=== PATIENT | male | born 1990 | race Caucasian/White ===

== ENCOUNTER 2020-08-03 14:06 | Emergency (ER) | payer MEDICAID ==
--- NOTE | 2020-08-03 15:11 | EDM.PDOCBH ---
ED HPI GENERAL MEDICAL PROBLEM - General Chief Complaint: Behavioral/Psych Stated Complaint: MENTAL EVAL Time Seen by Provider: 08/03/20 14:13 Source of Information: Reports: Patient History Limitations: Reports: No Limitations - History of Present Illness INITIAL COMMENTS - FREE TEXT/NARRATIVE: The patient presents with suicidal ideation. He has a history of depression. He is not on any medications. He is trying to get gender reassignment and he wants to be called Lyssa. He just recently stopped taking his hormones for this. He is currently homeless and feel he is a burden to his family and is frustrated with the process of getting his name changed and so forth. He has not been sleeping very well. He has not been eating or drinking well. He has no other symptoms such as fever, chills, cough, congestion, runny nose, chest pain, shortness of breath, abdominal pain, nausea or vomiting. A few days ago he Onset: Gradual Duration: Week(s): Severity: Moderate Improves with: Reports: None Worsens with: Reports: None Associated Symptoms: Reports: No Other Symptoms Head Pain Score (Numeric/FACES): 10 - Related Data Allergies Allergy/AdvReac Type Severity Reaction Status Date / Time No Known Allergies Allergy Verified 08/03/20 14:26 Home Meds: Home Meds . [No Known Home Meds] 08/03/20 [History] Past Medical History Psychiatric History: Reports: Anxiety, Autism, Depression, Other (See Below) Other Psychiatric History: gender idenitity Social & Family History - Tobacco Use Tobacco Use Status *Q: Never Tobacco User - Caffeine Use Caffeine Use: Reports: Coffee - Recreational Drug Use Recreational Drug Type: Reports: Ativan ED ROS GENERAL - Review of Systems Review Of Systems: See Below Constitutional: Reports: No Symptoms HEENT: Reports: No Symptoms Respiratory: Reports: No Symptoms Cardiovascular: Reports: No Symptoms Endocrine: Reports: No Symptoms GI/Abdominal: Reports: No Symptoms : Reports: No Symptoms Musculoskeletal: Reports: No Symptoms Skin: Reports: No Symptoms Psychiatric: Reports: Depression, Suicidal Ideation ED EXAM, BEHAVIORAL HEALTH - Physical Exam Exam: See Below Exam Limited By: No Limitations General Appearance: Alert, No Apparent Distress Ears: Normal External Exam Nose: Normal Inspection Head: Atraumatic, Normocephalic Neck: Normal Inspection Respiratory/Chest: No Respiratory Distress, Lungs Clear, Normal Breath Sounds Cardiovascular: Regular Rate, Rhythm, No Edema, No Murmur GI/Abdominal: Soft, Non-Tender, No Organomegaly, No Mass Back Exam: Normal Inspection Extremities: Normal Inspection Neurological: Alert, No Motor/Sensory Deficits, Oriented x 3 COURSE, BEHAVIORAL HEALTH COMP - Course Vital Signs: Last Vital Signs Temp 98.0 F 08/03/20 14:32 Pulse 94 08/03/20 14:32 Resp 20 08/03/20 14:32 BP 128/84 08/03/20 14:32 Pulse Ox 99 08/03/20 14:32 Orders, Labs, Meds: Active Orders 24 hr Category Date Time Status Cardiac Monitoring [RC] . DIRECTED Care 08/03/20 14:52 Active Laboratory Tests 08/03/20 08/03/20 08/03/20 Range/Units 15:02 15:02 15:02 WBC 5.93 (4.23-9.07) K/mm3 RBC 5.00 (4.63-6.08) M/mm3 Hgb 14.8 (13.7-17.5) gm/dl Hct 43.5 (40.1-51.0) % MCV 87.0 (79.0-92.2) fl MCH 29.6 (25.7-32.2) pg MCHC 34.0 (32.2-35.5) g/dl RDW Std Deviation 42.9 (35.1-43.9) fL Plt Count 272 (163-337) K/mm3 MPV 8.9 L (9.4-12.3) fl Neut % (Auto) 67.5 (34.0-67.9) % Lymph % (Auto) 21.1 L (21.8-53.1) % Tillman % (Auto) 9.9 (5.3-12.2) % Eos % (Auto) 1.2 (0.8-7.0) Baso % (Auto) 0.3 (0.1-1.2) % Neut # (Auto) 4.00 (1.78-5.38) K/mm3 Lymph # (Auto) 1.25 L (1.32-3.57) K/mm3 Tillman # (Auto) 0.59 (0.30-0.82) K/mm3 Eos # (Auto) 0.07 (0.04-0.54) K/mm3 Baso # (Auto) 0.02 (0.01-0.08) K/mm3 Sodium 138 (136-145) mEq/L Potassium 4.0 (3.5-5.1) mEq/L Chloride 103 (98-107) mEq/L Carbon Dioxide 26 (21-32) mEq/L Anion Gap 13.0 (5-15) BUN 8 (7-18) mg/dL Creatinine 1.0 (0.7-1.3) mg/dL Est Cr Clr Drug Dosing 113.90 mL/min Estimated GFR (MDRD) > 60 (>60) mL/min BUN/Creatinine Ratio 8.0 L (14-18) Glucose 129 H (74-106) mg/dL Calcium 9.2 (8.5-10.1) mg/dL Total Bilirubin 1.4 H (0.2-1.0) mg/dL AST 17 (15-37) U/L ALT 22 (16-63) U/L Alkaline Phosphatase 95 (46-116) U/L Total Protein 7.6 (6.4-8.2) g/dl Albumin 4.0 (3.4-5.0) g/dl Globulin 3.6 gm/dL Albumin/Globulin Ratio 1.1 (1-2) TSH 3rd Generation 1.156 (0.358-3.74) uIU/mL Salicylates < 0.2 L (2.8-20) mg/dL Urine Opiates Screen (QIPBDP=092) Ur Buprenorphine Scrn (CUTOFF=10) Ur Oxycodone Screen (UCC2CG=317) Urine Methadone Screen (WKI0BN=372) Ur Propoxyphene Screen (MXYFTR=076) Acetaminophen 0 L (10-30) ug/mL Ur Barbiturates Screen (PCSOTW=636) Ur Tricyclics Screen (ZVJRLZ=936) Ur Phencyclidine Scrn (CUTOFF=25) Ur Amphetamine Screen (IVNLAF=205) U Methamphetamines Scrn (OKUXGU=903) U Benzodiazepines Scrn (LORZVA=520) U Cocaine Metab Screen (OZGKCO=827) U Marijuana (THC) Screen (CUTOFF=50) Ethyl Alcohol 0.00 (0.00) gm% SARS-CoV-2 RNA (PALOMA) (NEGATIVE) 08/03/20 08/03/20 Range/Units 15:20 15:25 WBC (4.23-9.07) K/mm3 RBC (4.63-6.08) M/mm3 Hgb (13.7-17.5) gm/dl Hct (40.1-51.0) % MCV (79.0-92.2) fl MCH (25.7-32.2) pg MCHC (32.2-35.5) g/dl RDW Std Deviation (35.1-43.9) fL Plt Count (163-337) K/mm3 MPV (9.4-12.3) fl Neut % (Auto) (34.0-67.9) % Lymph % (Auto) (21.8-53.1) % Tillman % (Auto) (5.3-12.2) % Eos % (Auto) (0.8-7.0) Baso % (Auto) (0.1-1.2) % Neut # (Auto) (1.78-5.38) K/mm3 Lymph # (Auto) (1.32-3.57) K/mm3 Tillman # (Auto) (0.30-0.82) K/mm3 Eos # (Auto) (0.04-0.54) K/mm3 Baso # (Auto) (0.01-0.08) K/mm3 Sodium (136-145) mEq/L Potassium (3.5-5.1) mEq/L Chloride (98-107) mEq/L Carbon Dioxide (21-32) mEq/L Anion Gap (5-15) BUN (7-18) mg/dL Creatinine (0.7-1.3) mg/dL Est Cr Clr Drug Dosing mL/min Estimated GFR (MDRD) (>60) mL/min BUN/Creatinine Ratio (14-18) Glucose (74-106) mg/dL Calcium (8.5-10.1) mg/dL Total Bilirubin (0.2-1.0) mg/dL AST (15-37) U/L ALT (16-63) U/L Alkaline Phosphatase (46-116) U/L Total Protein (6.4-8.2) g/dl Albumin (3.4-5.0) g/dl Globulin gm/dL Albumin/Globulin Ratio (1-2) TSH 3rd Generation (0.358-3.74) uIU/mL Salicylates (2.8-20) mg/dL Urine Opiates Screen Negative (AINEVH=343) Ur Buprenorphine Scrn Negative (CUTOFF=10) Ur Oxycodone Screen Negative (HUO3FN=648) Urine Methadone Screen Negative (ITH5FZ=215) Ur Propoxyphene Screen Negative (FFADNE=725) Acetaminophen (10-30) ug/mL Ur Barbiturates Screen Negative (QVPISH=334) Ur Tricyclics Screen Negative (WLLJTT=964) Ur Phencyclidine Scrn Negative (CUTOFF=25) Ur Amphetamine Screen Negative (VWIBBE=960) U Methamphetamines Scrn Negative (YCQDTA=729) U Benzodiazepines Scrn Negative (HLFPKE=341) U Cocaine Metab Screen Negative (JFEYPJ=340) U Marijuana (THC) Screen Presumptive positive H (CUTOFF=50) Ethyl Alcohol (0.00) gm% SARS-CoV-2 RNA (PALOMA) Negative (NEGATIVE) Re-Assessment/Re-Exam: I ordered labs and his CBC looks good. His total bili is elevated at 1.4. His acetaminophen and salicylates are normal. His urine drug screen was positive for marijuana. He is COVID 19 negative. I feel he needs admission. I called [facility] and I am waiting to talk to Dr Pepe the psychiatrist electronic equipment repairer. Dr Pepe did accept the patient. We have called the [facility]'s deputy to come transport him. I have filled out the appropriate paperwork. Departure - Departure Time of Disposition: 18:00 Disposition: DC/Tfer to Psych Hosp/Unit 65 Condition: Poor Clinical Impression: Depressive disorder, Suicidal ideation - Discharge Information Referrals: PCP,None [Primary Care Provider] - Forms: ED Department Discharge Sepsis Event Note (ED) - Evaluation Sepsis Screening Result: No Definite Risk - Focused Exam Vital Signs: Vital Signs Temp Pulse Resp BP Pulse Ox 08/03/20 14:32 98.0 F 94 20 128/84 99 - My Orders Last 24 Hours: My Active Orders 08/03/20 14:52 Cardiac Monitoring [RC] . DIRECTED - Assessment/Plan Last 24 Hours: My Active Orders 08/03/20 14:52 Cardiac Monitoring [RC] . DIRECTED
[2020-08-03 15:42] LABS: ACETAMINOPHEN 0 ug/mL (10-30)
== END 2020-08-03 19:00 ==
LOC: JD.ED 14:06
DX: F32.9 Major depressive disorder, single episode, unspecified (principal); Z20.828 Contact with and (suspected) exposure to other viral communicable diseases; Z59.0 Homelessness
CPT/HCPCS: 36415; 80053; 80306; 80307; 84443; 85025; 99285; U0002